=== PATIENT | male | born 1975 | race Two or more races ===

== ENCOUNTER → 2016-12-19 | Outpatient (CLI) | payer OTHER ==
[2016-03-19 18:08] VITALS: BP 128/97
[~2016-12-19] MED LIST: BACL10TA PO; CEPH-264 PO; GABA-585 PO; IOHEXOL 180 MG/ML 10 ML VIAL. IT ONE; LIDOCAINE 1% Multi-Dose 20 ML VIAL. ID ONE; TRAM50TA PO
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
--- NOTE | 2016-12-19 13:00 | KCIC ---
Clinical indication: Sharp throbbing low back pain for 2 years. Procedure: Procedure was performed on December 19, 2016. The procedure, its risks and benefits, and potential complications were explained to the patient. All questions were answered. Written informed consent was obtained. A timeout procedure was performed. The patient was prepped and draped in normal sterile fashion. The patient was anesthetized with 4 cc of 1% lidocaine. Using 20-gauge guide needle and fluoroscopic guidance, a 25-gauge Wilver needle was advanced via paraspinous approach at L3. Image documenting needle position was stored. Clear CSF was obtained. 15 cc of Isovue M 200 intrathecal contrast was injected. The needle was removed with stylet in place. The patient tolerated the procedure well and there were no immediate complications. Total fluoroscopy time was 71 seconds. Image count is 9 Findings: There is no circumferential indentation of the contrast column. There is negligible retrolisthesis at L4-L5 and L5-S1. There is no dynamic instability with flexion or extension. Please see separately dictated CT myelogram. Impression: Intrathecal instillation of 15 mL of Omnipaque 180 for lumbar myelogram. Electronically signed by: Neto German MD (12/19/2016 12:57 PM) [id number]
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
== END | disposition home or self-care (01) ==
LOC: KCIC 08:06
PROVIDERS: ATTEND Neurological Surgery
DX: S30.0XXA Contusion of lower back and pelvis, initial encounter (principal); M47.896 Other spondylosis, lumbar region; M51.26 Other intervertebral disc displacement, lumbar region; X58.XXXA Exposure to other specified factors, initial encounter; Y93.89 Activity, other specified; Y92.89 Other specified places as the place of occurrence of the external cause; Y99.8 Other external cause status
CPT/HCPCS: 72110; 72132; 72265